=== PATIENT | female | born 1960 | race Caucasian/White ===

== ENCOUNTER 2018-03-21 11:06 | Emergency (ER) | payer BC, SELFPAY ==
--- NOTE | 2018-03-21 12:23 | EDPHYS ---
Physician Documentation [facility] Name: Marcela Muñoz Age: 57 yrs Sex: Female : 1960 Arrival Date: 03/21/2018 Time: 11:10 Bed 12 Private MD: Mandie Menon H ED Physician Mervin Nolasco HPI: 03/21 12:21 This 57 yrs old Female presents to ER via Ambulatory with complaints of Rash, kb Flu Symptoms. 12:21 The patient has not experienced similar symptoms in the past. The patient has not kb recently seen a physician. 12:21 The patient or guardian reports cough, that is intermittent, described as mild, with no kb sputum, flu symptoms, arthralgias, myalgias, no appetite. Onset: The symptoms/episode began/occurred 6 day(s) ago. Severity of symptoms: At their worst the symptoms were mild, in the emergency department the symptoms are unchanged. Modifying factors: The symptoms are alleviated by nothing, the symptoms are aggravated by nothing. Associated signs and symptoms: Pertinent positives: fever, Pertinent negatives: chest pain, diarrhea, ear ache, nausea, rhinorrhea, sore throat, vomiting. 12:28 Pt reports she has had flu symptoms since Friday and is getting better now, but wanted kb to get checked because she has 6 autoimmune disorders. Also reports a rash to back of head that she wants antibiotics for because she has an illness that lays dormant in her blood and it comes out like the rash and the only thing that will get rid of it is "strong" antibiotics.. Historical: - Allergies: 11:21 Sulfa (Sulfonamide Antibiotics); aj1 - Home Meds: 11:21 Lisinopril Oral [Active]; Metoprolol Tartrate Oral [Active]; Klonopin Oral [Active]; aj1 - PMHx: 11:21 Hypertension; Anxiety; Fibromyalgia; excema; alopecia; "LS"; aj1 - Immunization history:: Flu vaccine is not up to date. - Social history:: Smoking status: Patient uses tobacco products, smokes one-half pack cigarettes per day. - Ebola Screening: : Patient denies travel to an Ebola-affected area in the 21 days before illness onset. ROS: 12:15 ENT: Negative for injury, pain, and discharge, Neck: Negative for injury, pain, and kb swelling, Cardiovascular: Negative for chest pain, palpitations, and edema, Abdomen/GI: Negative for abdominal pain, nausea, vomiting, diarrhea, and constipation, Back: Negative for injury and pain, : Negative for injury, bleeding, discharge, and swelling, MS/Extremity: Negative for injury and deformity, Neuro: Negative for headache, weakness, numbness, tingling, and seizure. 12:15 Constitutional: Positive for body aches, chills, fatigue, fever, malaise, poor PO intake, Negative for weight loss. 12:15 Respiratory: Positive for cough, Negative for dyspnea on exertion, hemoptysis, orthopnea, pleurisy, shortness of breath, sputum production, wheezing. 12:15 Skin: Positive for rash, of the scalp. Exam: 12:15 Constitutional: This is a well developed, well nourished patient who is awake, alert, kb and in no acute distress. Head/Face: Normocephalic, atraumatic. ENT: Nares patent. No nasal discharge, no septal abnormalities noted. Tympanic membranes are normal and external auditory canals are clear. Oropharynx with no redness, swelling, or masses, exudates, or evidence of obstruction, uvula midline. Mucous membranes moist. Neck: Trachea midline, no thyromegaly or masses palpated, and no cervical lymphadenopathy. Supple, full range of motion without nuchal rigidity, or vertebral point tenderness. No Meningismus. Chest/axilla: Normal chest wall appearance and motion. Nontender with no deformity. No lesions are appreciated. Cardiovascular: Regular rate and rhythm with a normal S1 and S2. No gallops, murmurs, or rubs. Normal PMI, no JVD. No pulse deficits. Respiratory: Lungs have equal breath sounds bilaterally, clear to auscultation and percussion. No rales, rhonchi or wheezes noted. No increased work of breathing, no retractions or nasal flaring. Abdomen/GI: Soft, non-tender, with normal bowel sounds. No distension or tympany. No guarding or rebound. No evidence of tenderness throughout. MS/ Extremity: Pulses equal, no cyanosis. Neurovascular intact. Full, normal range of motion. Neuro: Awake and alert, GCS 15, oriented to person, place, time, and situation. Cranial nerves II-XII grossly intact. Motor strength 5/5 in all extremities. Sensory grossly intact. Cerebellar exam normal. Normal gait. 12:15 Skin: rash can be described as macular, papular, on the scalp. Vital Signs: 11:21 BP 132 / 90; Pulse 102; Resp 20; Temp 97.6; Pulse Ox 100% on R/A; Weight 90.72 kg (R); aj1 Height 5 ft. 3 in. (160.02 cm) (R); Pain 4/10; 11:21 Body Mass Index 35.43 (90.72 kg, 160.02 cm) aj1 MDM: 11:24 Patient medically screened. kb 12:21 Data reviewed: vital signs, nurses notes. Data interpreted: Pulse oximetry: on room air kb is 100 %. Interpretation: normal. Counseling: I had a detailed discussion with the patient and/or guardian regarding: the historical points, exam findings, and any diagnostic results supporting the discharge/admit diagnosis, lab results, the need for outpatient follow up, a family practitioner, to return to the emergency department if symptoms worsen or persist or if there are any questions or concerns that arise at home. 03/21 11:23 Order name: Flu; Complete Time: 11:54 kb Administered Medications: No medications were administered Disposition: 13:28 Co-signature as Attending Physician, Mervin Nolasco MD. rn Disposition: 03/21/18 12:22 Discharged to Home. Impression: Acute upper respiratory infection, unspecified, Rash and other nonspecific skin eruption. - Condition is Stable. - Discharge Instructions: Upper Respiratory Infection, Adult, [id number], Rash, [id number]-[id number], Viral Respiratory Infection, [id number]. - Prescriptions for Keflex 500 mg Oral Capsule - take 1 capsule by ORAL route every 8 hours for 7 days; 21 capsule. - Medication Reconciliation Form, Thank You Letter, Antibiotic Education, Prescription Opioid Use form. - Follow up: Emergency Department; When: As needed; Reason: Worsening of condition. Follow up: Private Physician; When: 2 - 3 days; Reason: Recheck today's complaints, Continuance of care, Re-evaluation by your physician. Signatures: Dispatcher [employer] EDShena Godfrey, JIMMY CAVANAUGH-Esther Reynoso RN RN aj1 Mervin Nolasco MD MD rn Baxter, Heather, RN RN Corrections: (The following items were deleted from the chart) 12:31 12:22 03/21/2018 12:22 Discharged to Home. Impression: Acute upper respiratory hb infection, unspecified; Rash and other nonspecific skin eruption. Condition is Stable. Forms are Medication Reconciliation Form, Thank You Letter, Antibiotic Education, Prescription Opioid Use. Follow up: Emergency Department; When: As needed; Reason: Worsening of condition. Follow up: Private Physician; When: 2 - 3 days; Reason: Recheck today's complaints, Continuance of care, Re-evaluation by your physician. kb
--- NOTE | 2018-03-21 12:23 | ER ---
Nurse's Notes [facility] Name: Marecla Muñoz Age: 57 yrs Sex: Female : 1960 Arrival Date: 03/21/2018 Time: 11:10 Bed 12 Private MD: Mandie Menon H Diagnosis: Acute upper respiratory infection, unspecified;Rash and other nonspecific skin eruption Presentation: 03/21 11:15 Presenting complaint: Patient states: "Friday I started having runny nose, by Friday it was in my chest I'm running fever, I have body aches, I have no energy." Patient reports TMax of 100.2 at home. Also reports headache. Patient also reports rash behind her right ear. Transition of care: patient was not received from another setting of care. Onset of symptoms was March 2018. Risk Assessment: Do you want to hurt yourself or someone else? Patient reports no desire to harm self or others. Initial Sepsis Screen: Does the patient meet any 2 criteria? HR > 90 bpm. Does the patient have a suspected source of infection? Yes: Productive cough/pneumonia. Care prior to arrival: None. 11:15 Method Of Arrival: Ambulatory aj1 11:15 Acuity: FRANCO 4 aj1 Triage Assessment: 11:21 General: Appears in no apparent distress. uncomfortable, Behavior is calm, anxious. aj1 Pain: Pain currently is 4 out of 10 on a pain scale. Neuro: Level of Consciousness is awake, alert, confused. Cardiovascular: Patient's skin is warm and dry. Respiratory: Airway is patent Respiratory effort is even, unlabored, Respiratory pattern is regular, symmetrical. Historical: - Allergies: 11:21 Sulfa (Sulfonamide Antibiotics); aj1 - Home Meds: 11:21 Lisinopril Oral [Active]; Metoprolol Tartrate Oral [Active]; Klonopin Oral [Active]; aj1 - PMHx: 11:21 Hypertension; Anxiety; Fibromyalgia; excema; alopecia; "LS"; aj1 - Immunization history:: Flu vaccine is not up to date. - Social history:: Smoking status: Patient uses tobacco products, smokes one-half pack cigarettes per day. - Ebola Screening: : Patient denies travel to an Ebola-affected area in the 21 days before illness onset. Vital Signs: 11:21 BP 132 / 90; Pulse 102; Resp 20; Temp 97.6; Pulse Ox 100% on R/A; Weight 90.72 kg (R); aj1 Height 5 ft. 3 in. (160.02 cm) (R); Pain 4/10; 11:21 Body Mass Index 35.43 (90.72 kg, 160.02 cm) aj1 ED Course: 11:10 Patient arrived in ED. sb2 11:10 Mandie Menon DO is Private Physician. sb2 11:19 Triage completed. aj1 11:21 Arm band placed on. aj1 11:23 Shen[facility] Stewart [facility]-C [facility]. kb 11:23 Mervin Nolasco MD is Attending Physician. kb Administered Medications: No medications were administered Outcome: 12:22 Discharge ordered by . kb 12:30 Discharged to home ambulatory. hb 12:30 Condition: stable 12:30 Discharge instructions given to patient, Instructed on discharge instructions, follow up and referral plans. medication usage, Demonstrated understanding of instructions, follow-up care, medications, Prescriptions given X 1. 12:31 Patient left the ED. hb Signatures: Shena Stewart FNP-C FNP-Ckb Johnson, Angela, RN RN aj1 Caterina Llanos, RN RN Liliane Oliver sb2
[2018-03-21 12:35] VITALS: BP 132/90; TEMP 97.6; O2SAT 100
== END 2018-03-21 12:31 | disposition home or self-care (01) ==
LOC: ER 11:06
DX: J06.9 Acute upper respiratory infection, unspecified (principal); R21 Rash and other nonspecific skin eruption; I10 Essential (primary) hypertension; M79.7 Fibromyalgia; F41.9 Anxiety disorder, unspecified; L65.9 Nonscarring hair loss, unspecified; F17.210 Nicotine dependence, cigarettes, uncomplicated; Z79.899 Other long term (current) drug therapy
CPT/HCPCS: 87804; 99282